=== PATIENT | female | born 1950 | race Caucasian/White ===

== ENCOUNTER → 2023-04-12 09:15 | Outpatient (CLI) | payer MEDICARE, SELFPAY | PROVIDERS: Visit Provider Surgery | DX: L97.524 Non-pressure chronic ulcer of other part of left foot with necrosis of bone (principal); E11.621 Type 2 diabetes mellitus with foot ulcer; K94.03 Colostomy malfunction; S81.002A Unspecified open wound, left knee, initial encounter | CPT/HCPCS: 11042; 36415; 73630; 80053; 85025; 85651; 86140; 87070; 87077; 87186; 87205; 99204; 99215 ==

== ENCOUNTER → 2023-04-12 11:57 | Outpatient (CLI) | payer MEDICARE, SELFPAY ==
--- NOTE | 2023-04-12 12:00 | DI.RAD.S_ITS ---
PROCEDURE: XR FOOT LT MIN 3V INDICATIONS: Left 2nd toe ulcer, evaluate for osteomyelitis TECHNIQUE: 3 views of the foot were acquired. COMPARISON: None. FINDINGS: Bones: There is cortical irregularity and lucency at the 2nd distal phalanx as seen on lateral view. Status post great toe amputation at the level of the mid proximal phalanx. Hammertoe deformities of the 2nd through 5th toes. Plantar calcaneal enthesophyte. No fractures or dislocations. No suspicious bony lesions. Soft tissues: No tibiotalar joint effusion. Achilles tendon appears normal. IMPRESSION: Cortical irregularity and lucency of the 2nd distal phalanx as seen on lateral view only may reflect osteomyelitis. Dictated by: Nury Mariscal M.D. on 04/12/2023 at 17:16 Approved by: Nury Mariscal M.D. on 04/12/2023 at 17:18
[2023-04-12 12:58] LABS: Add Manual Diff / Slide Review NO; Basophils Absolute Auto 100 /uL (0-100); Basophils Percent Auto 0.5 % (0-2); Eosinophils Absolute Auto 300 /uL (0-450); Eosinophils Percent Auto 2.1 % (2-4); Hemoglobin 11.6 g/dL (12.0-16.0); Lymphocytes Absolute Auto 3200 /uL (1100-4500); Lymphocytes Percent Auto 24.7 % (25-40); Mean Corpuscular HGB Conc 33.1 % (30-36); Mean Corpuscular Hemoglobin 28.5 PG (26-34); Monocytes Absolute Auto 1400 /uL (0-900); Monocytes Percent Auto 10.7 % (3-14); Neutrophils Absolute Auto 8100 /uL (1500-7000); Platelet Count 649 X10^3/uL (150-400); Red Blood Cell Count 4.06 X10^6/uL (4.0-5.2); Red Cell Distribution Width 13.6 % (11.6-14.8)
[2023-04-12 13:16] LABS: Alanine Aminotransferase 22 IU/L (<35); Albumin 3.8 g/dL (3.5-5.0); Albumin Globulin Ratio 1.1 (1.0-2.8); Alkaline Phosphatase 132 U/L (38-126); Aspartate Aminotransferase 24 IU/L (14-36); BUN Creatinine Ratio 14.7 (6-22); Bilirubin Total 0.6 mg/dL (0.2-1.3); Blood Urea Nitrogen 15 mg/dL (7-17); C-Reactive Protein Quant 3.7 mg/dL (<1.0); Calcium 8.9 mg/dL (8.4-10.2); Carbon Dioxide 28 mmol/L (22-32); Chloride 97 mmol/L (98-107); Estimated Glomerular Filt Rate 59 mL/min (>60); Globulin 3.6 g/dL (1.7-4.1); Glucose 152 mg/dL (80-110); HEMOLYSIS < 15 (0-50); Sodium 140 mmol/L (137-145); Total Protein 7.4 g/dL (6.3-8.2)
[2023-04-12 13:23] LABS: Erythrocyte Sedimentation Rate 68 MM/HR (0-20)
[2023-04-12 13:25] LABS: Potassium 2.6 mmol/L (3.4-5.1)
== END ==
PROVIDERS: PCP Internal Medicine; Referring Provider Surgery; Visit Provider Surgery
DX: E11.621 Type 2 diabetes mellitus with foot ulcer (principal); L97.524 Non-pressure chronic ulcer of other part of left foot with necrosis of bone; K94.03 Colostomy malfunction; S81.002A Unspecified open wound, left knee, initial encounter
CPT/HCPCS: 36415; 73630; 80053; 85025; 85651; 86140; 87070; 87205

== ENCOUNTER → 2023-04-19 15:25 | Outpatient (CLI) | payer MEDICARE, SELFPAY | LOC: WC 15:25 | PROVIDERS: PCP Internal Medicine; Referring Provider Internal Medicine; Visit Provider Surgery | DX: E11.621 Type 2 diabetes mellitus with foot ulcer (principal); L97.526 Non-pressure chronic ulcer of other part of left foot with bone involvement without evidence of necrosis; R60.0 Localized edema; L84 Corns and callosities; L53.9 Erythematous condition, unspecified; E11.622 Type 2 diabetes mellitus with other skin ulcer; L97.822 Non-pressure chronic ulcer of other part of left lower leg with fat layer exposed | CPT/HCPCS: 99214 ==

== ENCOUNTER → 2023-05-03 14:10 | Outpatient (CLI) | payer MEDICARE, SELFPAY | PROVIDERS: PCP Internal Medicine; Visit Provider Surgery | DX: E11.621 Type 2 diabetes mellitus with foot ulcer (principal); L97.522 Non-pressure chronic ulcer of other part of left foot with fat layer exposed; L97.421 Non-pressure chronic ulcer of left heel and midfoot limited to breakdown of skin; E11.622 Type 2 diabetes mellitus with other skin ulcer; L97.822 Non-pressure chronic ulcer of other part of left lower leg with fat layer exposed; R60.0 Localized edema; I96 Gangrene, not elsewhere classified; M86.172 Other acute osteomyelitis, left ankle and foot; K94.09 Other complications of colostomy; E11.42 Type 2 diabetes mellitus with diabetic polyneuropathy | CPT/HCPCS: 11042; 99213 ==

== ENCOUNTER → 2023-05-17 14:45 | Outpatient (CLI) | payer MEDICARE, SELFPAY | PROVIDERS: PCP Internal Medicine; Visit Provider Surgery | DX: E11.621 Type 2 diabetes mellitus with foot ulcer (principal); L97.522 Non-pressure chronic ulcer of other part of left foot with fat layer exposed; E11.622 Type 2 diabetes mellitus with other skin ulcer; L97.812 Non-pressure chronic ulcer of other part of right lower leg with fat layer exposed; L84 Corns and callosities | CPT/HCPCS: 11042; 99213 ==

== ENCOUNTER → 2023-05-24 13:03 | Outpatient (CLI) | payer MEDICARE, SELFPAY | PROVIDERS: PCP Internal Medicine; Visit Provider Surgery | DX: E11.621 Type 2 diabetes mellitus with foot ulcer (principal); L97.522 Non-pressure chronic ulcer of other part of left foot with fat layer exposed; L97.512 Non-pressure chronic ulcer of other part of right foot with fat layer exposed; L84 Corns and callosities; K94.03 Colostomy malfunction; M86.172 Other acute osteomyelitis, left ankle and foot | CPT/HCPCS: 11042; 99213 ==

== ENCOUNTER → 2023-05-31 13:16 | Outpatient (CLI) | payer MEDICARE, SELFPAY ==
--- NOTE | 2023-05-31 | OV.WND_ITS ---
Progress Note Details Patient Name: Dione Rodriguez Patient Number: [id number] Clinician: Tonia Ott Patient Date of : 1950 Physician / Art Objects Salesperson: Deonte Arthur Patient SUBJECTIVE Chief Complaint This information was obtained from the Chart, Patient. wounds to feet Allergies Celebrex (Reaction: kidney failure), codeine (Reaction: GI intolerance), Sulfa (Sulfonamide Antibiotics) (Reaction: kidney failure) HPI This information was obtained from the Patient. The following HPI elements were documented for the patient's wound: Location: L 2nd and 3rd toes, R 2nd and 3rd toes, colostomy Duration: 04/11/23, 03/08/23, 03/23/23 Context: DFU with osteomyelitis, leaking colostomy Associated Signs and Symptoms: none The patient is a 72-year-old female with diabetes and hammertoes who returns today for follow up of multiple diabetic ulcers on toes of both feet and complications of colostomy. The patient underwent a sigmoid colectomy with end colostomy on March 23, 2023 for treatment of complications of diverticulitis. Ju stoma skin and the ostomy leakage is much improved. The patient has been receiving dressing changes with Iodoflex to the ulcers on toes and is using postop surgical shoes for pressure offloading. She denies having any fever or chills. She underwent partial amputation of the left great toe January 2023 for treatment of diabetic ulcer with osteomyelitis. The patient does have a past history of having hammertoe surgery of the left 2nd toe. The patient has had a decreased appetite since her surgery and a 30 lb weight loss. She denies having any fever or chills. She reports good control of her blood sugars. Hemoglobin A1c from February 22, 2023 was 7.5. ABIs were 1.17 on the left and 1.15 on the right. The patient has completed a course of Levaquin and is no longer on antibiotics. The patient was seen by podiatry and they did not feel that she required any further surgery. On exam today the ulcer right 2nd toe is improved, 3rd toe healed. Ulcer on the left 2nd toe is healed, ulcer on the left 3rd toe improved, new ulcer left 4th toe. There was some slight purulence draining from the ulcer on the left 4th toe but no erythema or swelling was noted. The patient is scheduled for reversal of colostomy on June 07, 2023. The patient has been off antibiotics for 3 weeks. LABS: 04/12/23: Cultures left foot grew Serratia marceseans 04/12/23: X-ray of left foot shows cortical irregularity which may reflect osteomyelitis 04/12/23: WBC 13.0, hemoglobin 11.6, HCT 35.0, potassium 2.6, remainder of electrolytes normal, LFTs normal C-reactive protein 3.7, GFR 59, ESR 68 Medical History This information was obtained from the Patient. Patient has a medical history of: Dione Rodriguez [id number] 1950 Type II Diabetes Kidney Disease Neuropathy Colostomy Diverticulitis Hypertension Hyperlipidemia Gout Additional Information Does patient have a history of Cancer? Yes? Complete all questions.: No Surgical History This information was obtained from the Patient. Patient has a surgical history of: Sigmoid Colectomy- 03/23/2023 Colostomy- 03/23/2023 Repair of incarcerated hernia- 03/23/2023 Hysterectomy- Cholecystectomy- Knee replacement- Hammer toe repair- Left great toe partial amputation- 02/15/2023 OBJECTIVE Vitals Height/Length: 67 in (170.18 cm), Weight: 223.7 lbs (101.68 kgs), BMI: 35, Temperature: 98.2 ?F (36.78 ?C), Pulse: 77 bpm, Respiratory Rate: 16 breaths/min, Blood Pressure: 147/87 mmHg, Pulse Oximetry: 97 %. Physical Exam Constitutional: Vital signs reviewed and noted. Well developed, well nourished, and in no acute distress. Alert and oriented x3. Respiratory: Even respirations without use of accessory muscles. No intercoastal retractions noted. Even and non labored respiration. Integumentary (Hair, Skin): See wound assessment. Neurological: decreased lower extremity sensation. Psychiatric: Orientation to time, place and person: Normal affect with normal thought pattern. Additional Information The patient's potential to heal is: good. Wound Assessment(s) Wound #1 Left, Distal Toe - Second is a chronic Hoang Grade 3 Diabetic Ulcer and has received an outcome of Healed - no new wound(s). Initial wound encounter measurements are 0cm length x 0cm Dione Rodriguez Jaci [id number] 1950 width with no measurable depth, with an area of 0 sq cm. No tunneling has been noted. No sinus tract has been noted. No undermining has been noted. There was no drainage noted. The patient reports no wound pain due to the wound being insensate. The wound margin is epithelial resurfacing Wound bed has No, granulation, No slough, No eschar, Yes epithelialization. The periwound skin exhibited callus. The temperature of the periwound skin is WNL. Periwound skin does not exhibit signs or symptoms of infection. Local Pulse is Palpable. Additional Information Limited to breakdown of skin: Yes MICHELLE/Vascular Completed?: 04/12/23 Results?: L- 1.17. R- 1.15 Wound #4 Right Toe - Second is an acute Hoang Grade 2 Diabetic Ulcer and has received a status of Not Healed. Initial wound encounter measurements are 0.2cm length x 0.3cm width x 0.2 cm depth, with an area of 0.06 sq cm and a volume of 0.012 cubic cm. Adipose is exposed. No tunneling has been noted. No sinus tract has been noted. Undermining has been noted at 12:00 and ends at 12:00 with a maximum distance of 0.2cm. There is a Scant amount of serous drainage noted which has no odor. The patient reports no wound pain due to the wound being insensate. The wound margin is callus Wound bed has Yes, pink, firm, granulation, Yes slough, No eschar, No epithelialization. The periwound skin exhibited callus. The temperature of the periwound skin is WNL. Local Pulse is Palpable. Additional Information Other devitalized tissue present: biofilm Limited to breakdown of skin: No Wound #5 Left Toe - Third is an acute Hoang Grade 2 Diabetic Ulcer and has received a status of Not Healed. Initial wound encounter measurements are 0.1cm length x 0.1cm width x 0.1 cm depth, with an area of 0.01 sq cm and a volume of 0.001 cubic cm. Adipose is exposed. No tunneling has been noted. No sinus tract has been noted. No undermining has been noted. There was no drainage noted. The patient reports no wound pain due to the wound being insensate. The wound margin is callus Wound bed has No, granulation, Yes slough, No eschar, No epithelialization. The periwound skin exhibited callus. The periwound skin did not exhibit brawny induration, edema, excoriation, induration, crepitus, fluctuance, rash, maceration, atrophie fredrick, cyanosis, ecchymosis, erythema, hemosiderosis, pallor and rubor. The periwound skin was dry/scaly. The periwound skin was not friable and moist. The temperature of the periwound skin is WNL. Periwound skin does not exhibit signs or symptoms of infection. Local Pulse is Palpable. Additional Information Other devitalized tissue present: biofilm Limited to breakdown of skin: No Wound #6 Left Toe - Fourth is an acute Hoang Grade 2 Diabetic Ulcer and has received a status of Not Healed. Initial wound encounter measurements are 0.2cm length x 0.2cm width x 0.1 cm depth, with an area of 0.04 sq cm and a volume of 0.004 cubic cm. Adipose is exposed. No tunneling has been noted. No sinus tract has been noted. No undermining has been noted. There is a Scant amount of purulent drainage noted. The patient reports a wound pain of level 0/10. The wound margin is callus Wound bed has No, granulation, Yes slough, No eschar, No epithelialization. The periwound skin exhibited callus. The temperature of the periwound skin is WNL. Local Pulse is Palpable. Additional Information Other devitalized tissue present: biofilm Limited to breakdown of skin: No ASSESSMENT Michael Dione N [id number] 1950 Active Problems ICD-10 L97.524 - Non-pressure chronic ulcer of other part of left foot with necrosis of bone (Encounter Diagnosis) L97.922 - Non-pressure chronic ulcer of unspecified part of left lower leg with fat layer exposed (Encounter Diagnosis) E11.621 - Type 2 diabetes mellitus with foot ulcer (Encounter Diagnosis) M86.172 - Other acute osteomyelitis, left ankle and foot (Encounter Diagnosis) K94.03 - Colostomy malfunction (Encounter Diagnosis) L97.522 - Non-pressure chronic ulcer of other part of left foot with fat layer exposed (Encounter Diagnosis) L97.512 - Non-pressure chronic ulcer of other part of right foot with fat layer exposed General Notes Diabetic ulcer left 2nd toe healed Diabetic ulcer left knee healed Ulcer right 2nd toe Ulcer right 3rd toe healed Ulcer left 3rd toe New ulcer left 4th toe with slight purulent drainage Leaking colostomy with excoriation and inflammation of ju stoma skin much improved The following factors have been identified that may affect wound healing: Devitalized tissue Biofilm Infection Diabetes Leaking colostomy Ongoing local pressure Goals: Remove devitalized tissue Remove and prevent biofilm Treat infection Pressure offloading Stop leaking from colostomy Plan: Debridement, new ulcer left 4th toe cultured today, continue dressing changes with Iodosorb to ulcers on toes both feet. Colostomy care per Regi Diop RN. Postop surgical shoe pressure offloading. Follow up in 1 week or after colostomy reversal. PROCEDURES Wound #4 Wound #4 (Diabetic Ulcer) is located on the right toe - second. A skin/subcutaneous tissue level surgical debridement with a total area debrided of 0.18 sq cm. was performed by Deonte Arthur MD. Subcutaneous was removed along with devitalized tissue: callus, exudate and slough. The following instrument(s) were used: curette. Pain control was achieved using EMLA lidocaine/prilocaine 2.5%/2.5%. A time out was conducted prior to the start of the procedure. A minimal amount of bleeding was controlled with pressure. The procedure was tolerated well with a pain level of 0 throughout and a pain level of 0 following the procedure. Post Debridement Measurements: 0.3cm length x 0.6cm width x 0.2cm depth; with an area of 0.18 sq cm and a volume of 0.036 cubic cm. Additional Information Dione Rodriguez [id number] 1950 Muscle fascia or bone removed and sent to pathology?: No Wound #5 Wound #5 (Diabetic Ulcer) is located on the left toe - third. A skin/subcutaneous tissue level surgical debridement with a total area debrided of 0.15 sq cm. was performed by Deonte Arthur MD. Subcutaneous was removed along with devitalized tissue: biofilm, callus, exudate and slough. The following instrument(s) were used: curette. Pain control was achieved using EMLA lidocaine/prilocaine 2.5%/2.5%. A time out was conducted prior to the start of the procedure. A minimal amount of bleeding was controlled with pressure. The procedure was tolerated well with a pain level of 0 throughout and a pain level of 0 following the procedure. Post Debridement Measurements: 0.3cm length x 0.5cm width x 0.2cm depth; with an area of 0.15 sq cm and a volume of 0.03 cubic cm. Additional Information Muscle fascia or bone removed and sent to pathology?: No Wound #6 Wound #6 (Diabetic Ulcer) is located on the left toe - fourth. A skin/subcutaneous tissue level surgical debridement with a total area debrided of 0.08 sq cm. was performed by Deonte Arthur MD. Subcutaneous was removed along with devitalized tissue: biofilm, callus, exudate and slough. The following instrument(s) were used: curette. Pain control was achieved using EMLA lidocaine/prilocaine 2.5%/2.5%. A time out was conducted prior to the start of the procedure. A minimal amount of bleeding was controlled with pressure. The procedure was tolerated well with a pain level of 0 throughout and a pain level of 0 following the procedure. Post Debridement Measurements: 0.2cm length x 0.4cm width x 0.2cm depth; with an area of 0.08 sq cm and a volume of 0.016 cubic cm. Additional Information Muscle fascia or bone removed and sent to pathology?: No PLAN Wound Orders: Wound #1 Left, Distal Toe - Second Anesthetic Topical Xylocaine to wound bed Cleanser Cleanse Wound with normal saline Dressings Primary dressing - Iodoflex to wound bed. Cover and secure with - Foam and tape. Change Dressing - Three times a week. Off-Loading Total non-weight bearing using Use/Wear when walking - Wear boot: On in the morning and off at night, but wear it when you get up to void. Please wear your custom diabetic shoe on your right foot. Physician Review: Reviewed and evaluated labs. Discussed the Plan of Care @ bedside with - the patient Reviewed hospital records. I, as the physician, have reviewed the orders scribed by the center RN's and agree. Wound #4 Right Toe - Second Anesthetic Topical Xylocaine to wound bed Cleanser Dione Rodriguez [id number] 1950 Cleanse Wound with normal saline Dressings Primary dressing - Iodoflex to wound bed. Cover and secure with - Foam and tape. Change Dressing - Three times a week. Wound #5 Left Toe - Third Anesthetic Topical Xylocaine to wound bed Cleanser Cleanse Wound with normal saline Dressings Primary dressing - Iodoflex to wound bed. Cover and secure with - Foam and tape. Change Dressing - Three times a week. Wound #6 Left Toe - Fourth Anesthetic Topical Xylocaine to wound bed Cleanser Cleanse Wound with normal saline Dressings Primary dressing - Iodoflex to wound bed. Cover and secure with - Foam and tape. Change Dressing - Three times a week. Additional Orders: Other Instructions: - Consider Kerasal ointment for softening callus. Instructions: - [facility]: Please change dressing as instructed until pt returns to clinic Follow-Up Appointments Return Appointment - Two weeks Other information: If you develop fever, chills, increased pain, drainage, redness or swelling please call our office. If after hours, respond to the ER. Should you experience any significant changes in your wound(s) or have any questions regarding your home care instructions please contact the wound center @ [phone]. If after hours, contact your primary care physician or go to the hospital emergency room. Scribing Attestation I attest, as the nurse, that I scribed these orders for the physician. Ancillary Services: Laboratory: Culture Wound Plan of Care: 01. ENSURE/ESTABLISH OPTIMAL BLOOD FLOW : - Complete lower extremity assessment - Perform non-invasive vascular testing (i.e. MICHELLE) and document findings. Consider repeating when wound healing <40% after 30 days of wound care. - Order Vascular Consult for evaluation/treatment and/or non-invasive vascular testing. 02. ASSESS FOR/TREAT INFECTION : - Evaluate for signs and symptoms of infection and document findings. - Obtain culture and sensitivity (CandS) or tissue culture when infection is suspected. (NOTE:) Consider repeating when wound healing <40% after 30 days of wound care. - Order appropriate antibiotics based on patient presentation and culture and sensitivity results. Instruct patient on the importance of taking medication as prescribed. - Order Infectious Disease consult. 03. DEBRIDE WEEKLY OR MORE OFTEN PRN : - Evaluate patient in center weekly to assess wound bed and margins for need for debridement. Dione Rodriguez [id number] 1950 - Mechanical debridement: Stimulate and/or maintain acute phase of wound healing by reducing bacterial burden and devitalized/non-viable tissue. - Debridement by any method to remove devitalized/necrotic tissue to promote healing and prevent further complications. Goal is to stimulate and/or maintain acute phase of wound healing by reducing bacterial burden and devitalized/non-viable tissue. 04. OPTIMIZE GLUCOSE CONTROL and NUTRITION : - Order/review pertinent labs to evaluate renal function, glucose control, and nutritional status. - Complete a nutrition risk assessment. - Order Nutrition Consult based upon results of nutrition risk assessment. - Order PCP or Endocrine Consult when A1C is >7.0 for follow up and stabilization of glucose. 05. OFFLOADING PLAN : - Evaluate plan for offloading - Advise patient to offload the foot ulcer. (i.e. half shoe, surgical shoe, insert, custom shoe, felt and foam, cam walker, multipodus splint, total contact cast, bi-valve cast, posterior splint). 06. OPTIMIZE HOST FACTORS: - Assess and review patient history for wound etiology, co-morbid conditions, medication regime, and smoking history. 07. DRESSING SELECTION : - Evaluate for dressing-related factors, such as availability, wear time, adaptability and use to better optimize wound healing and patient compliance. - Choose topical treatments and/or dressing based on wound type and appearance, periwound skin condition, wound size and depth, anatomic location, volume of exudate, edema in the lower extremities, and risk or presence of infection. - Educate the patient/family/caregiver to monitor dressing daily. Change dressing only as needed but never less frequently than weekly so that wound bed can be reassessed. 08. ADVANCED MODALITIES : - Evaluate for appropriateness of Hyperbaric Oxygen Therapy. 09. FALL PREVENTION : - Complete fall assessment. 10. PAIN MANAGEMENT : - Prepare patient to set reasonable expectations prior to procedure. - Distract the patient with music or conversation during procedure. - Instruct the patient to call ???time-out??? if pain is too intense during procedure. 11. MEASURABLE GOALS for Wound Healing and/or Hyperbaric Oxygen Therapy : - Less Drainage - Decrease Inflammation - Decrease pain - Decrease Wound Dimensions - Wound Closure - Improve quality of life - Implement protocols to promote healing and impede further injury - Reduce/Removal of Necrotic/Devitalized Tissue - Promote angiogenesis - Reduce edema - Improve oxygenation 12. DURATION/FREQUENCY of Wound Care Visits : - 1x weekly for 30 days 13. OSTOMY : - Educate the patient regarding supply ordering. - Educate the patient on nutrition/hydration issues. - Instruct the patient on resources available. Dione Rodriguez [id number] 1950 - Evaluate the patient's understanding on the signs of complications and when to contact the physician. - Reviewed, not applicable Electronic Signature(s) Signed By: Date: Deonte Arthur MD 07/03/2023 08:39:56 (PT) 05/31/2023 2:32:04 PM Version Electronically Date: Signed By: Deonte Arthur MD 06/01/2023 08:34:58 (PT) Entered By: Richa Torres on 06/29/2023 10:13:13 (PT) Dione Rodriguez [id number] 1950
== END ==
PROVIDERS: PCP Internal Medicine; Visit Provider Surgery
DX: E11.621 Type 2 diabetes mellitus with foot ulcer (principal); E11.42 Type 2 diabetes mellitus with diabetic polyneuropathy; L97.522 Non-pressure chronic ulcer of other part of left foot with fat layer exposed; L97.512 Non-pressure chronic ulcer of other part of right foot with fat layer exposed; L84 Corns and callosities; K94.03 Colostomy malfunction
CPT/HCPCS: 11042; 87070; 87075; 87147; 87205; 99213

== ENCOUNTER → 2023-06-21 15:02 | Outpatient (CLI) | payer MEDICARE, SELFPAY | PROVIDERS: PCP Internal Medicine; Visit Provider Surgery | DX: E11.621 Type 2 diabetes mellitus with foot ulcer (principal); L97.522 Non-pressure chronic ulcer of other part of left foot with fat layer exposed; L97.512 Non-pressure chronic ulcer of other part of right foot with fat layer exposed; M86.172 Other acute osteomyelitis, left ankle and foot; K94.03 Colostomy malfunction; T81.89XA Other complications of procedures, not elsewhere classified, initial encounter; R20.8 Other disturbances of skin sensation | CPT/HCPCS: 11042; 99213 ==

== ENCOUNTER → 2023-06-28 14:40 | Outpatient (CLI) | payer MEDICARE, SELFPAY | PROVIDERS: PCP Internal Medicine; Visit Provider Nurse Practitioner Family | DX: E11.621 Type 2 diabetes mellitus with foot ulcer (principal); L97.522 Non-pressure chronic ulcer of other part of left foot with fat layer exposed; L97.512 Non-pressure chronic ulcer of other part of right foot with fat layer exposed; S31.101A Unspecified open wound of abdominal wall, left upper quadrant without penetration into peritoneal cavity, initial encounter; T81.89XA Other complications of procedures, not elsewhere classified, initial encounter; L98.8 Other specified disorders of the skin and subcutaneous tissue; L84 Corns and callosities; R23.4 Changes in skin texture | CPT/HCPCS: 11042; 97597; 99212; 99214 ==

== ENCOUNTER → 2023-07-04 10:54 | Outpatient (CLI) | payer MEDICARE, SELFPAY | PROVIDERS: PCP Internal Medicine; Visit Provider Surgery | DX: E11.621 Type 2 diabetes mellitus with foot ulcer (principal); L97.522 Non-pressure chronic ulcer of other part of left foot with fat layer exposed; L97.512 Non-pressure chronic ulcer of other part of right foot with fat layer exposed; L84 Corns and callosities; R23.4 Changes in skin texture; T81.89XA Other complications of procedures, not elsewhere classified, initial encounter; S31.109A Unspecified open wound of abdominal wall, unspecified quadrant without penetration into peritoneal cavity, initial encounter | CPT/HCPCS: 11042 ==

== ENCOUNTER → 2023-07-11 11:49 | Outpatient (CLI) | payer MEDICARE, SELFPAY | PROVIDERS: PCP Internal Medicine; Visit Provider Surgery | DX: E11.621 Type 2 diabetes mellitus with foot ulcer (principal); L97.522 Non-pressure chronic ulcer of other part of left foot with fat layer exposed; L97.512 Non-pressure chronic ulcer of other part of right foot with fat layer exposed; L84 Corns and callosities; T81.89XA Other complications of procedures, not elsewhere classified, initial encounter; S31.101A Unspecified open wound of abdominal wall, left upper quadrant without penetration into peritoneal cavity, initial encounter; K94.03 Colostomy malfunction; M20.40 Other hammer toe(s) (acquired), unspecified foot | CPT/HCPCS: 11042 ==